=== PATIENT | male | born 1965 | race Caucasian/White ===

== ENCOUNTER 2017-10-09 08:38 | Day surgery (SDC) | payer BC ==
[~2017-10-09 08:38] MED LIST: Lactated Ringers 1,000 ML IV SCH
--- NOTE | 2017-10-09 09:12 | PCM.PREANE ---
Preanesthetic Assessment - Anesthesia/Transfusion/Family Hx Anesthesia History: Prior Anesthesia Without Reaction Transfusion History: No Prior Transfusion(s) Intubation History: Unknown - Review of Systems General: No Symptoms Pulmonary: No Symptoms Cardiovascular: No Symptoms Gastrointestinal: No Symptoms Neurological: No Symptoms Other: Reports: None - Physical Assessment NPO Status Date: 10/08/17 NPO Status Time: 21:00 Height: 5 ft 9 in Weight: 154.221 kg ASA Class: 3 Mental Status: Alert & Oriented x3 Airway Class: Mallampati = 2 Dentition: Reports: Normal Dentition Thyro-Mental Finger Breadths: 3 Mouth Opening Finger Breadths: 3 ROM/Head Extension: Full Lungs: Clear to Auscultation, Normal Respiratory Effort Cardiovascular: Regular Rate, Regular Rhythm - Allergies Allergies/Adverse Reactions: Allergies Allergy/AdvReac Type Severity Reaction Status Date / Time No Known Allergies Allergy Verified 10/06/17 09:40 - Acknowledgements Anesthesia Type Planned: MAC Pt an Appropriate Candidate for the Planned Anesthesia: Yes Alternatives and Risks of Anesthesia Discussed w Pt/Guardian: Yes Pt/Guardian Understands and Agrees with Anesthesia Plan: Yes PreAnesthesia Questionnaire HEENT History: Reports: None Cardiovascular History: Reports: High Cholesterol, Hypertension Respiratory History: Reports: None Gastrointestinal History: Reports: Colon Polyp, GERD, Other (See Below) Other Gastrointestinal History: diverticulitis, anal fissure at present caused by previous antibiotics for diverticulitis, possible esophageal stricture Genitourinary History: Reports: None Musculoskeletal History: Reports: Fracture Other Musculoskeletal History: hx fx tib-fib Neurological History: Reports: None Psychiatric History: Reports: None Endocrine/Metabolic History: Reports: Obesity/BMI 30+ (Super Morbid Obesity) Hematologic History: Reports: None Immunologic History: Reports: None Oncologic (Cancer) History: Reports: None Dermatologic History: Reports: None - Infectious Disease History Infectious Disease History: Reports: None - Past Surgical History Head Surgeries/Procedures: Reports: None GI Surgical History: Reports: Colonoscopy Musculoskeletal Surgical History: Reports: Other (See Below) Other Musculoskeletal Surgeries/Procedures:: hx excision of ganglion cyst-lt wrist - SUBSTANCE USE Smoking Status *Q: Never Smoker Recreational Drug Use History: No - HOME MEDS Home Medications: Home Meds L.acidoph,Paracasei, B.lactis [Probiotic] 1 tab PO DAILY 10/06/17 [History] Lisinopril 10 mg PO DAILY 10/06/17 [History] Multivitamin [Multivitamins] 1 tab PO DAILY 10/06/17 [History] NIFEdipine [Nifedipine] 2 mg TOP TID 10/06/17 [History] Pantoprazole Sodium 40 mg PO DAILY 10/06/17 [History] atorvaSTATin Calcium [Atorvastatin Calcium] 40 mg PO DAILY 10/06/17 [History] - CURRENT (IN HOUSE) MEDS Current Meds: Current Medications Lactated Ringer's (Ringers, Lactated) 1,000 mls @ 125 mls/hr IV ASDIRECTED GENARO
[2017-10-09] MEDS ORDERED: Lidocaine 2% 5 ML SDV ONE ×2 (10:15→10:19)
[2017-10-09] MEDS ORDERED: Midazolam 1 MG/ML 2 ML SDV ONE (10:16)
[2017-10-09] MEDS ORDERED: Propofol 200 MG/20 ML SDV ONE ×2 (10:16→10:19)
[2017-10-09] MEDS ORDERED: fentaNYL 250 MCG/5 ML SDV ONE (10:16)
[2017-10-09] MEDS ORDERED: Glycopyrrolate 0.2 MG/ML SDV ONE (10:19)
[2017-10-09] MEDS ORDERED: Succinylcholine 200 MG/10 ML MDV ONE (10:19)
[2017-10-09] MEDS ORDERED: Ondansetron 4 MG/2 ML SDV IVPUSH PRN (11:55)
[2017-10-09] MEDS ORDERED: Sodium Chloride 0.9% 2.5 ML Syringe FLUSH PRN (11:55)
[2017-10-09] MEDS ORDERED: Sodium Chloride 0.9% 10 ML Syringe FLUSH PRN (11:55)
[2017-10-09] MEDS ORDERED: Acetaminophen/oxyCODONE 325-5 MG Tab PO PRN (11:56)
[2017-10-09] MEDS ORDERED: Morphine 4 MG/ML Syringe IVPUSH PRN (11:56)
--- NOTE | 2017-10-09 12:01 | PCM.OPNOTE ---
- General Post-Op/Procedure Note Date of Surgery/Procedure: 10/09/17 Operative Procedure(s): Esophagogastroduodenoscopy with gastric and esophageal biopsies Pre Op Diagnosis: Dysphagia with progressive reflux disease Post-Op Diagnosis: Mild gastritis. Distal esophagitis. Anesthesia Technique: General ET Tube (ASA III) Primary Surgeon: Sammy Reeves Product Examiner: Jt Callahan Condition: Good Free Text/Narrative:: DICTATION [id number] CPT CODE [id number]
--- NOTE | 2017-10-09 12:14 | PCM.POSTAN ---
POST ANESTHESIA ASSESSMENT - MENTAL STATUS Mental Status: Alert, Oriented - VITAL SIGNS SaO2: 96 Resp Rate: 14 - RESPIRATORY Respiratory Status: Respiratory Rate WNL, Airway Patent, O2 Saturation Stable - CARDIOVASCULAR CV Status: Pulse Rate WNL, Blood Pressure Stable - GASTROINTESTINAL GI Status: No Symptoms - PAIN Pain Score: 0 - POST OP HYDRATION Hydration Status: Adequate & Stable
--- NOTE | 2017-10-09 12:55 | PCM48HPAN ---
Post Anesthesia Note - EVALUATION WITHIN 48HRS OF ANESTHETIC Vital Signs in Normal Range: Yes Patient Participated in Evaluation: Yes Respiratory Function Stable: Yes Airway Patent: Yes Cardiovascular Function Stable: Yes Hydration Status Stable: Yes Pain Control Satisfactory: Yes Nausea and Vomiting Control Satisfactory: Yes Mental Status Recovered: Yes Resp Rate: 16
[2017-10-09] MEDS ORDERED: Lidocaine 2% Jelly 30 ML Tube ONE (13:23)
--- NOTE | 2017-10-12 08:35 | OR ---
SURGEON: Sammy Reeves M.D. DATE OF PROCEDURE: 10/09/2017 OPERATIONS PERFORMED: Esophagogastroduodenoscopy with gastric and esophageal biopsies. DELINQUENCY PREVENTION OFFICER: Dr. Chavarria. ANESTHESIA: General endotracheal. ASA CLASSIFICATION: III. PREOPERATIVE DIAGNOSIS: Progressive dysphagia with gastroesophageal reflux disease. POSTOPERATIVE DIAGNOSES: 1. Mild gastritis. 2. Distal esophagitis. DESCRIPTION OF PROCEDURE: The patient was taken to the endoscopy room and positioned on the endoscopy table in the supine position. Time-out was called for appropriate identification of the patient and procedure. General endotracheal anesthesia was induced. The gastroscope was then inserted through the bite block into the oropharynx and advanced without difficulty through the esophagus and stomach into the duodenum where examination was carried out in a retrograde fashion. The duodenum shows no acute inflammatory changes or ulcerations. The gastroscope was withdrawn to the stomach, which does show very mild appearing gastritis. No ulcerations were noted. Biopsies of the antrum were obtained. The gastroscope was retroflexed to visualize the proximal stomach. No tumors or polyps were seen proximally. There was no evidence of hiatal hernia. The gastroscope was then straightened and slowly withdrawn, aspirating the stomach as the scope was withdrawn. The GE junction was well defined. However, there were some mild inflammatory changes in the distal esophagus from approximately 40 to 42 cm. Biopsies of this area were obtained. The mid and proximal esophagus demonstrates healthy-appearing mucosa with good contractility. No mid or proximal lesions were identified. As the patient was intubated, we were not able to visualize the vocal cords, although they were visualized at the time of intubation, and no vocal cord lesions were identified. The gastroscope was then removed with the patient having tolerated the procedure well. Following emergence from anesthesia and extubation, he was taken to recovery room in stable condition. RENY / BJ /[id number]
== END 2017-10-09 13:45 | disposition home or self-care (01) ==
LOC: MW.SDS 08:38
PROVIDERS: ATTEND Surgery
DX: R13.10 Dysphagia, unspecified (principal); K21.9 Gastro-esophageal reflux disease without esophagitis; K29.50 Unspecified chronic gastritis without bleeding; K20.9 Esophagitis, unspecified; I10 Essential (primary) hypertension; E66.01 Morbid (severe) obesity due to excess calories; Z68.42 Body mass index [BMI] 45.0-49.9, adult; E78.00 Pure hypercholesterolemia, unspecified; Z79.899 Other long term (current) drug therapy
CPT/HCPCS: 43239; J0330; J2250; J2704; J3010; J3490; J7120; 88305; 88312

== ENCOUNTER 2022-06-15 09:49 | Observation (INO) | payer BC ==
[2022-06-15] MEDS ORDERED: Albuterol/Ipratropium 3.0-0.5 MG/3 ML Neb Soln NEB ONE (10:00)
[2022-06-15] MEDS ORDERED: LORazepam 2 MG/ML SDV IVPUSH ONE ×2 (10:18→10:20)
[2022-06-15 10:40] LABS: CARBON DIOXIDE,CO2 25.9 mmol/L (21.0-32.0); POTASSIUM,K 3.7 mmol/L (3.5-5.1)
[2022-06-15] MEDS ORDERED: methylPREDNISolone Sodium Succinate 125 MG/2 ML SDV IVPUSH ONE (10:43)
[2022-06-15] MEDS ORDERED: Iopamidol 755 MG/ML 500 ML Multipack Bottle IVPUSH ONE (11:05)
[2022-06-15 11:08] LABS: CORONAVIRUS COVID-19 NAA NEGATIVE (NEGATIVE); INFLUENZA A NAA NEGATIVE (NEGATIVE); INFLUENZA B NAA NEGATIVE (NEGATIVE)
[2022-06-15] MEDS ORDERED: Acetaminophen 325 MG Tab PO PRN (14:05)
[2022-06-15] MEDS: Levofloxacin 750 MG Tab PO SCH (15:16)
[2022-06-15] MEDS ORDERED: Albuterol/Ipratropium 3.0-0.5 MG/3 ML Neb Soln NEB SCH (18:00)
[2022-06-15] MEDS: Albuterol 0.083% 2.5 MG/3 ML Neb Soln INH SCH ×2 (18:33→23:02)
[2022-06-15] MEDS: Ipratropium 0.02% 0.5 MG/2.5 ML Neb Soln INH SCH ×2 (18:36→23:01)
[2022-06-15] MEDS ORDERED: Sodium Chloride 0.65% Nasal Spray 45 ML Bottle NAS PRN (19:22)
[2022-06-15] MEDS: atorvaSTATin 40 MG Tab PO SCH (20:00)
[2022-06-15] MEDS: Lisinopril/Hydrochlorothiazide 10-12.5 MG Tab PO SCH (20:12)
[2022-06-16] MEDS: Omeprazole 20 MG Cap.CR PO SCH ×2 (06:13→06:39)
[2022-06-16] MEDS: Ibuprofen 400 MG Tab PO PRN ×3 (06:17→20:56)
[2022-06-16] MEDS: Ipratropium 0.02% 0.5 MG/2.5 ML Neb Soln INH SCH (06:52)
[2022-06-16] MEDS: Albuterol 0.083% 2.5 MG/3 ML Neb Soln INH SCH (06:53)
[2022-06-16 07:02] LABS: CARBON DIOXIDE,CO2 28.3 mmol/L (21.0-32.0); POTASSIUM,K 4.3 mmol/L (3.5-5.1)
[2022-06-16] MEDS ORDERED: Lisinopril/Hydrochlorothiazide 10-12.5 MG Tab PO SCH (09:00)
[2022-06-16] MEDS: Albuterol/Ipratropium 3.0-0.5 MG/3 ML Neb Soln INH SCH ×3 (12:23→23:22)
[2022-06-16] MEDS: Levofloxacin 750 MG Tab PO SCH (13:34)
[2022-06-16] MEDS: Lisinopril/Hydrochlorothiazide 10-12.5 MG Tab PO SCH (20:55)
[2022-06-16] MEDS: atorvaSTATin 40 MG Tab PO SCH (20:56)
[2022-06-17] MEDS: Omeprazole 20 MG Cap.CR PO SCH ×2 (06:00→06:56)
[2022-06-17] MEDS: Albuterol/Ipratropium 3.0-0.5 MG/3 ML Neb Soln INH SCH (07:08)
[2022-06-17] MEDS ORDERED: Levofloxacin 750 MG Tab PO STA (09:04)
== END 2022-06-17 09:35 | disposition home or self-care (01) ==
LOC: MW.ED 09:49 → MW.MS 12:28
PROVIDERS: ADMIT Internal Medicine; ATTEND Internal Medicine
DX: J45.51 Severe persistent asthma with (acute) exacerbation (principal); R09.02 Hypoxemia; U07.1 COVID-19; R42 Dizziness and giddiness; I10 Essential (primary) hypertension; E66.9 Obesity, unspecified; J44.9 Chronic obstructive pulmonary disease, unspecified; J98.11 Atelectasis; Z98.890 Other specified postprocedural states; Z86.010 Personal history of colon polyps; Z79.899 Other long term (current) drug therapy; Z68.43 Body mass index [BMI] 50.0-59.9, adult
CPT/HCPCS: 0240U; 36415; 71045; 71275; 80048; 80053; 82803; 83735; 83880; 84484; 85025; 85379; 85610; 85730; 86140; 93005; 94640; 96374; 96375; 99285; A9270; G0378; J2060; J2930; Q9967; 99222; 99231; 99238; J3490; J7620-GY